=== PATIENT | male | born 1960 | race Caucasian/White ===

== ENCOUNTER 2024-01-24 14:33 | Outpatient (OUT) | payer OTHER, SELFPAY | END 2024-01-24 14:34 | disposition home or self-care (01) | LOC: PST 14:34 | PROVIDERS: Visit Provider Surgery | DX: Z01.818 Encounter for other preprocedural examination (principal) ==

== ENCOUNTER 2024-01-31 08:28 | Day surgery (SDC) | payer OTHER, SELFPAY ==
[2024-01-31 08:41] VITALS: BP 132/79; PULSE 85; TEMP 36.5; O2SAT 97; BMI 29.7
[2024-01-31] MEDS: LACTATED RINGER'S SOLUTION 1,000 ML 50 ML IV (09:12)
--- NOTE | 2024-01-31 09:20 | W.PM.PROCNOT ---
Date of procedure: 01/31/24 Pre-op diagnosis: blood in stool, hemorrhoids Post-op diagnosis: same as pre-op Procedure: Previous colonoscopy: never procedure: diagnostic colonoscopy The patient was given IV conscious sedation.? The patient's SPO2 remained above 90% throughout the procedure. The colonoscope was inserted per rectum and advanced under direct vision to the cecum without difficulty.? The prep was good.? Findings: Terminal ileum os: normal Cecum/Ascending colon: normal Transverse colon: normal Descending/Sigmoid colon: normal Rectum/Anus: examined in normal and retroflexed positions and noted to have moderate internal hemorrhoids, internal banding was performed on 3 hemorrhoidal columns Withdrawal Time was (minutes): 12 The colon was decompressed and the scope was removed.? The patient tolerated the procedure well. Recommendations/Plan: 1.? Lifestyle and dietary modifications as discussed 2.? F/U in 2 weeks as needed for post band procedure 3.? F/U in 10 years for repeat c-scope 4.? Discussed with the family Anesthesia: MAC Surgeon: Reji Vasquez Estimated blood loss (mL): 0 Pathology: none sent Condition: stable Disposition: PACU
[2024-01-31 10:42] VITALS: BP 102/65; PULSE 68; TEMP 36.3; O2SAT 94
[2024-01-31 10:57] VITALS: BP 127/73; PULSE 73; O2SAT 98
[2024-01-31 11:12] VITALS: BP 116/71; PULSE 76; O2SAT 98
== END 2024-01-31 11:20 | disposition home or self-care (01) ==
PROVIDERS: PCP Family Medicine; Visit Provider Surgery
PROC: (CPT 00811; principal; 2024-01-31 09:55)
DX: K92.1 Melena (principal); K64.9 Unspecified hemorrhoids; I25.10 Atherosclerotic heart disease of native coronary artery without angina pectoris; Z90.49 Acquired absence of other specified parts of digestive tract; Z95.5 Presence of coronary angioplasty implant and graft; Z87.891 Personal history of nicotine dependence; E78.5 Hyperlipidemia, unspecified; K44.9 Diaphragmatic hernia without obstruction or gangrene
CPT/HCPCS: 00811; 45378; J2704